=== PATIENT | female | born 2000 | race Caucasian/White ===

== ENCOUNTER 2023-01-29 16:05 | Emergency (ER) | payer SELFPAY | END 2023-01-29 17:15 | disposition home or self-care (01) | LOC: JD.ED 16:05 | DX: S01.01XA Laceration without foreign body of scalp, initial encounter (principal); W26.8XXA Contact with other sharp object(s), not elsewhere classified, initial encounter | CPT/HCPCS: 12001; 99283 ==

== ENCOUNTER 2023-11-05 17:42 | Inpatient (IN) | payer MEDICAID ==
[~2023-11-05 17:42] MED LIST: Ropivacaine 0.2% PF 2 MG/ML 20 ML SDV ONE
[2023-11-05] MEDS: Lactated Ringers 1,000 ML IV ONE (18:36)
[2023-11-05] MEDS: Acetaminophen/HYDROcodone 325-5 MG Tab PO PRN (18:38)
[2023-11-05 18:40] LABS: BASOPHILS PERCENT AUTO 0.2 % (0.0-1.0); EOSINOPHILS PERCENT AUTO 0.4 % (0.0-6.0); HEMATOCRIT 36.2 % (37.0-47.0); HEMOGLOBIN 12.7 gm/dl (12.0-16.0); IMMATURE GRAN ABSOLUTE AUTO 0.11 K/mm3 (0.00-0.05); IMMATURE GRAN PERCENT AUTO 1.3 % (0.0-0.4); LYMPHOCYTES ABSOLUTE AUTO 1.1 K/mm3 (1.0-4.8); LYMPHOCYTES PERCENT AUTO 13.3 % (24.0-44.0); MEAN CORPUSCULAR HEMOGLOBIN 32.8 pg (28.0-32.0); MEAN CORPUSCULAR HGB CONC 35.1 g/dl (32.0-36.0); MEAN CORPUSCULAR VOLUME 93.5 fl (83.0-99.0); MEAN PLATELET VOLUME 10.9 fl (9.4-12.3); MONOCYTES ABSOLUTE AUTO 0.8 K/mm3 (0.0-0.8); MONOCYTES PERCENT AUTO 9.3 % (0.0-8.0); NEUTROPHILS ABSOLUTE AUTO 6.2 K/mm3 (1.8-7.7); NEUTROPHILS PERCENT AUTO 75.5 % (41.0-71.0); PLATELET COUNT,PLT 200 K/mm3 (150-400); RED BLOOD CELL COUNT 3.87 M/mm3 (4.10-5.30)
[2023-11-05 18:41] LABS: APPEARANCE,URINE CLEAR (Clear); BILIRUBIN,URINE NEGATIVE (Negative); COLOR,URINE YELLOW (Yellow); GLUCOSE,URINE NEGATIVE (Negative); KETONES,URINE NEGATIVE (Negative); LEUKOCYTE ESTERASE,URINE 1+ (Negative); NITRITE,URINE NEGATIVE (Negative); OCCULT BLOOD,URINE 1+ (Negative); PH,URINE 6.5 (5.0-8.0); PROTEIN,URINE NEGATIVE (Negative); UROBILINOGEN,URINE 0.2 (0.2-1.0)
[2023-11-05 18:48] LABS: BACTERIA,URINE MODERATE /hpf (FEW); MUCUS,URINE FEW /hpf (FEW)
[2023-11-05 18:55] LABS: ANION GAP 14.5 (5-15); BUN/CREATININE RATIO 8.3 (14-18); CALCIUM 9.7 mg/dL (8.5-10.1); CREATININE 0.6 mg/dL (0.55-1.02); EST CRCL DRUG DOSING (CG) 122.69 mL/min; POTASSIUM,K 3.5 mEq/L (3.5-5.1)
[2023-11-05] MEDS ORDERED: Lidocaine 1% 50 ML MDV INJECT PRN (19:22)
[2023-11-05] MEDS ORDERED: Sodium Chloride 0.9% 10 ML Syringe FLUSH PRN (19:22)
[2023-11-05] MEDS ORDERED: Oxytocin/0.9 % Sodium Chloride 30 UNIT/500 ML BAG IV SCH (19:30)
[2023-11-05] MEDS: Oxytocin/0.9 % Sodium Chloride 30 UNIT/500 ML BAG IV SCH (19:52)
[2023-11-05] MEDS: Lactated Ringers 1,000 ML IV SCH (20:39)
[2023-11-05] MEDS ORDERED: ePHEDrine 50 MG/ML SDV IVPUSH PRN (21:41)
[2023-11-05] MEDS ORDERED: diphenhydrAMINE 50 MG/ML SDV IVPUSH PRN (21:41)
[2023-11-05] MEDS: Ropivacaine 200 MG in Premix Bag 1 BAG EPIDUR SCH (22:15)
[2023-11-05] MEDS: Ondansetron 4 MG/2 ML SDV IVPUSH PRN (22:57)
[2023-11-06] MEDS: Nalbuphine 10 MG/1 ML Vial IVPUSH ONE (03:01)
[2023-11-06] MEDS ORDERED: Morphine 2 MG/ML SYRINGE IVPUSH PRN (03:11)
[2023-11-06] MEDS ORDERED: Acetaminophen 325 MG Tab PO PRN (04:54)
[2023-11-06] MEDS: Benzocaine/Menthol 20%-0.5% Spray 78 GM Cannister TOP PRN (05:48)
[2023-11-06] MEDS: Witch Hazel Medicated Pads 40/Jar TOP PRN (05:48)
[2023-11-06] MEDS: Ibuprofen 800 MG Tab PO SCH (06:14)
[2023-11-06] MEDS: Sodium Chloride 0.9% 10 ML Syringe FLUSH SCH (06:47)
[2023-11-06] MEDS: Docusate Sodium 100 MG Cap PO PRN (16:43)
== END 2023-11-07 10:20 | disposition home or self-care (01) | DRG 807 ==
LOC: JD.OBCHECK 17:42 → JD.OB 17:45 → JD.OBCHECK 22:27 → JD.OB 22:28 → OBSVTOIN 11-06 02:37 → JD.OB 11-06 02:38
PROVIDERS: ADMIT Obstetrics & Gynecology; ATTEND Obstetrics & Gynecology
PROC: 10E0XZZ Delivery of Products of Conception, External Approach (ICD-10-PCS; principal; 2023-11-06)
PROC: 10907ZC Drainage of Amniotic Fluid, Therapeutic from Products of Conception, Via Natural or Artificial Opening (ICD-10-PCS; 2023-11-06)
PROC: 3E033VJ Introduction of Other Hormone into Peripheral Vein, Percutaneous Approach (ICD-10-PCS; 2023-11-06)
PROC: 3E0R3BZ Introduction of Anesthetic Agent into Spinal Canal, Percutaneous Approach (ICD-10-PCS; 2023-11-06)
PROC: 00HU33Z Insertion of Infusion Device into Spinal Canal, Percutaneous Approach (ICD-10-PCS; 2023-11-06)
DX: O99.892 Other specified diseases and conditions complicating childbirth (principal); Z37.0 Single live birth; N20.0 Calculus of kidney; O71.82 Other specified trauma to perineum and vulva; Z3A.39 39 weeks gestation of pregnancy
CPT/HCPCS: 01967; 36415; 51702; 59025; 59409; 76775; 76775-26; 80048; 81001; 85025; 86592; 86850; 86900; 86901; 87086; A9270-GY; J2405; J2795; J3490; J7120; J7999